=== PATIENT | female | born 1985 | race Caucasian/White ===

== ENCOUNTER 2021-06-05 17:46 | Day surgery (SDC) | payer OTHER ==
[2021-06-05] MEDS ORDERED: hydrALAZINE 20 MG/ML VIAL SLOW IVP PRN (19:02)
== END 2021-06-05 19:10 | disposition home or self-care (01) ==
LOC: CSHLD/OP 17:46
PROVIDERS: ATTEND Obstetrics & Gynecology
DX: O99.891 Other specified diseases and conditions complicating pregnancy (principal); R03.0 Elevated blood-pressure reading, without diagnosis of hypertension; O09.523 Supervision of elderly multigravida, third trimester; Z3A.34 34 weeks gestation of pregnancy

== ENCOUNTER 2021-06-19 23:45 | Day surgery (SDC) | payer OTHER ==
[2021-06-20 00:11] VITALS: BMI 27.4
[2021-06-20] MEDS ORDERED: hydrALAZINE 20 MG/ML VIAL SLOW IVP PRN (01:51)
== END 2021-06-20 02:24 | disposition home health service (06) ==
LOC: CSHLD/OP 23:45
PROVIDERS: ATTEND Obstetrics & Gynecology
DX: O46.93 Antepartum hemorrhage, unspecified, third trimester (principal); O09.523 Supervision of elderly multigravida, third trimester; Z3A.38 38 weeks gestation of pregnancy; Z86.16 Personal history of COVID-19; Z79.899 Other long term (current) drug therapy
CPT/HCPCS: 99282

== ENCOUNTER 2021-07-07 09:11 | Outpatient (CLI) | payer OTHER ==
[2021-07-07 17:30] LABS: SARS-CoV-2 PCR by NAA Not Detected (NotDetected)
== END 2021-07-07 09:12 | disposition home or self-care (01) ==
LOC: CSHLAB 09:11
PROVIDERS: ATTEND Advanced Practice Midwife
DX: Z20.822 Contact with and (suspected) exposure to COVID-19 (principal)
CPT/HCPCS: U0003; U0005

== ENCOUNTER 2021-07-10 19:00 | Inpatient (IN) | payer MEDICAID, OTHER, SELFPAY ==
[~2021-07-10 19:00] MED LIST: Bupivacaine/Epinephrine 0.25% 30 ML VIAL ONE
[2021-07-10 21:56] VITALS: BMI 28.4
[2021-07-10] MEDS ORDERED: HYDROcodone/Acetaminophen 5/325 mg Tablet PO PRN ×2 (21:58)
[2021-07-10] MEDS ORDERED: Diphenoxylate HCl/Atropine Tablet PO PRN (21:58)
[2021-07-10] MEDS ORDERED: Butorphanol Tartrate 1 MG/ML VIAL SLOW IVP PRN (21:58)
[2021-07-10] MEDS ORDERED: Methylergonovine 0.2 MG/ML VIAL IM PRN (21:58)
[2021-07-10] MEDS: Lactated Ringer's 1,000 ML IV SCH (21:58)
[2021-07-10] MEDS ORDERED: NS w/ Oxytocin 30 units 500 ML IV SCH ×2 (21:58)
[2021-07-10] MEDS ORDERED: Promethazine HCl 25 MG/ML VIAL IM PRN (21:58)
[2021-07-10] MEDS ORDERED: Ibuprofen 800 MG TAB PO PRN (21:58)
[2021-07-10] MEDS ORDERED: Lidocaine 1% (PF) 30 ML VIAL SC PRN (21:58)
[2021-07-10] MEDS ORDERED: Ondansetron PF 4 MG/2 ML Vial IVP PRN (21:58)
[2021-07-10] MEDS ORDERED: Misoprostol 200 MCG TAB PR PRN (21:58)
[2021-07-10] MEDS ORDERED: hydrALAZINE 20 MG/ML VIAL SLOW IVP PRN (21:58)
[2021-07-10] MEDS ORDERED: Acetaminophen 500 MG TAB PO PRN (21:58)
[2021-07-10] MEDS ORDERED: Carboprost 250 MCG/ML AMP IM PRN (21:58)
[2021-07-10] MEDS: Misoprostol 100 MCG TAB VAG SCH (22:25)
[2021-07-10 22:40] LABS: Mean Corpuscular HGB CONC 34.5 g/dL (32.0-36.0); Mean Corpuscular Hemoglobin 32.4 pg (27.0-33.0); Mean Corpuscular Volume 93.9 fl (81.6-98.3); Mean Platelet Volume 11.3 fl (7.4-10.4); Platelet Count 142 10x3/uL (150-450); Red Blood Cell (RBC) Count 2.78 10x6/uL (3.90-5.03); White Blood Cell (WBC) Count 8.7 10x3/uL (3.5-10.5)
[2021-07-10 23:15] LABS: Hep B Surf Ag Non-Reactive S/CO (NonReactive)
[2021-07-10 23:16] LABS: Syphilis Antibody Nonreactive (Nonreactive); Syphilis Antibody Index 0.04 S/CO (<1.00 Non-Reactive)
[2021-07-10 23:51] LABS: HBSAg Index 0.24 S/CO (0-0.99)
[2021-07-11] MEDS: Misoprostol 100 MCG TAB VAG SCH ×4 (01:00→18:48)
[2021-07-11] MEDS: Lactated Ringer's 1,000 ML IV SCH ×2 (06:17→18:48)
[2021-07-11] MEDS ORDERED: Fentanyl 2 mcg/Bup 0.1% Cadd 100 ML ONE (09:44)
[2021-07-11] MEDS ORDERED: Lactated Ringer's 500 ML IV PRN (10:25)
[2021-07-11] MEDS ORDERED: ePHEDrine Sulfate 50 MG/10 ML VIAL SLOW IVP PRN (10:25)
[2021-07-11] MEDS ORDERED: Promethazine HCl 25 MG/ML VIAL IM PRN (10:25)
[2021-07-11] MEDS ORDERED: Ondansetron PF 4 MG/2 ML Vial IVP PRN ×2 (10:25→17:36)
[2021-07-11] MEDS ORDERED: Naloxone HCl 0.4 mg/ml Vial IVP PRN ×2 (10:25)
[2021-07-11] MEDS ORDERED: Acetaminophen 325 MG TAB PO PRN (10:25)
[2021-07-11] MEDS ORDERED: Hydrocerin (Eucerin) Cream 120 gm Jar TOP PRN (10:25)
[2021-07-11] MEDS ORDERED: diphenhydrAMINE 50 MG/ML VIAL IVP PRN (10:25)
[2021-07-11] MEDS ORDERED: Fentanyl 2 mcg/Bupivacaine 0.1% Cassette 100 ML EPIDURAL SCH (10:30)
[2021-07-11] MEDS ORDERED: Communication Order-Pharmacy FS SCH (10:30)
[2021-07-11] MEDS ORDERED: Misoprostol 200 MCG TAB VAG PRN (17:36)
[2021-07-11] MEDS ORDERED: Methylergonovine 0.2 MG/ML VIAL IM PRN (17:36)
[2021-07-11] MEDS ORDERED: hydrALAZINE 20 MG/ML VIAL SLOW IVP PRN (17:36)
[2021-07-11] MEDS ORDERED: HYDROcodone/Acetaminophen 5/325 mg Tablet PO PRN ×2 (17:36)
[2021-07-11] MEDS ORDERED: Milk Of Magnesia 30 ML UDCUP PO PRN (17:36)
[2021-07-11] MEDS ORDERED: Benzocaine-Menthol 82.5 ML CAN TOP PRN (17:36)
[2021-07-11] MEDS ORDERED: NS w/ Oxytocin 30 units 500 ML IV SCH (17:36)
[2021-07-11] MEDS ORDERED: Bisacodyl 10 MG SUPP PR PRN (17:36)
[2021-07-11] MEDS ORDERED: Ferrous Sulfate 325 MG TAB PO SCH (20:00)
[2021-07-11] MEDS: Ibuprofen 800 MG TAB PO SCH (21:25)
[2021-07-11] MEDS: Docusate 100 MG CAP PO SCH (21:25)
[2021-07-11] MEDS: Ferrous Sulfate 325 MG TAB PO SCH (21:26)
[2021-07-12] MEDS: Ibuprofen 800 MG TAB PO SCH ×2 (05:20→13:37)
[2021-07-12] MEDS ORDERED: Ferrous Sulfate 325 MG TAB PO SCH (08:00)
[2021-07-12] MEDS: Ferrous Sulfate 325 MG TAB PO SCH (08:44)
[2021-07-12] MEDS: Docusate 100 MG CAP PO SCH (08:44)
[2021-07-12] MEDS ORDERED: LAMOTRIGINE 250 MG PO SCH (09:00)
[2021-07-12 10:40] VITALS: BP 109/56; TEMP 97.6
== END 2021-07-12 16:55 | disposition home or self-care (01) | DRG 807 ==
LOC: CSHLD 20:37 → CSHPP 07-11 17:05
PROVIDERS: ADMIT Obstetrics & Gynecology; ATTEND Obstetrics & Gynecology
PROC: 10E0XZZ Delivery of Products of Conception, External Approach (ICD-10-PCS; principal; 2021-07-11)
PROC: 3E0334Z Introduction of Serum, Toxoid and Vaccine into Peripheral Vein, Percutaneous Approach (ICD-10-PCS; 2021-07-11)
PROC: 10907ZC Drainage of Amniotic Fluid, Therapeutic from Products of Conception, Via Natural or Artificial Opening (ICD-10-PCS; 2021-07-11)
PROC: 3E033VJ Introduction of Other Hormone into Peripheral Vein, Percutaneous Approach (ICD-10-PCS; 2021-07-11)
PROC: 3E0P7VZ Introduction of Hormone into Female Reproductive, Via Natural or Artificial Opening (ICD-10-PCS; 2021-07-11)
DX: O99.344 Other mental disorders complicating childbirth (principal); Z37.0 Single live birth; Z67.41 Type O blood, Rh negative; O26.893 Other specified pregnancy related conditions, third trimester; Z3A.39 39 weeks gestation of pregnancy; F31.9 Bipolar disorder, unspecified; F41.9 Anxiety disorder, unspecified; D64.9 Anemia, unspecified; Z14.1 Cystic fibrosis carrier; O90.81 Anemia of the puerperium
CPT/HCPCS: 36415; 85027; 85461; 86780; 86850; 86870; 86900; 86901; 87340; 90384; 96372; J2590; J7120; U0003; U0005

== ENCOUNTER 2021-09-16 12:19 | Outpatient (CLI) | payer OTHER ==
[~2021-09-16 12:19] MED LIST changes: -Bupivacaine/Epinephrine 0.25% 30 ML VIAL ONE; +Magnevist 469MG/ML 20 ML VIAL ONE
== END 2021-09-16 12:20 | disposition home or self-care (01) ==
LOC: CSHMRI 12:19
PROVIDERS: ATTEND Family Medicine
DX: H47.099 Other disorders of optic nerve, not elsewhere classified, unspecified eye (principal); R90.82 White matter disease, unspecified
CPT/HCPCS: 70553